=== PATIENT | male | born 1960 | race Caucasian/White ===

== ENCOUNTER 2017-11-12 09:18 | Emergency (ER) | payer OTHER ==
--- NOTE | 2017-11-12 10:25 | RAD REPORT ---
EXAM DESCRIPTION: RAD - Shoulder Left 2 View - 11/12/2017 10:19 am CLINICAL HISTORY: Left shoulder pain FINDINGS: No fracture or dislocation is seen. The the bones appear somewhat osteoporotic. The remai nder of the exam is unremarkable
--- NOTE | 2017-11-12 10:59 | EDPHYS ---
Physician Documentation [facility] Name: Luis Liz Age: 57 yrs Sex: Male : 1960 Arrival Date: 11/12/2017 Time: 09:22 Bed 14 Private MD: ED Physician Luis Joiner HPI: 11/12 10:47 This 57 yrs old Male presents to ER via Ambulatory with complaints of Left pm1 Shoulder Injury. 10:47 The patient or guardian complains of pain, that is acute. left shoulder. Context: The pm1 problem was sustained at work, The patient reports no obvious deformity. Decreased ROM due to pain. Onset: The symptoms/episode began/occurred yesterday. Modifying factors: the symptoms are alleviated by remaining still, The symptoms are aggravated by movement. Associated signs and symptoms: Pertinent negatives: chest pain, neck pain, Numbness in left arm shortness of breath. Severity of symptoms: in the emergency department the symptoms are unchanged. Treatment prior to arrival includes: over the counter medications, NSAIDS. The patient has not experienced similar symptoms in the past. The patient has not recently seen a physician. Patient was lifting a box over his head and then he lost control of it and it started falling to the left side. he supported the box with his left hand only and tried to lift it with flexion of his bicep. Left bicep pain as a result. Historical: - Allergies: 09:35 No Known Allergies; ss - Home Meds: 09:35 Lexapro 20 mg Oral tab 1 tab once daily [Active]; Klonopin 1 mg Oral tab 1 tab daily ss [Active]; - PMHx: 09:35 Anxiety; Depression; Migraines; ss - PSHx: 09:35 cervical fusion; ss - Immunization history:: Adult Immunizations up to date. - Social history:: Smoking status: Patient uses tobacco products, chewing tobacco. ROS: 10:47 Constitutional: Negative for fever, chills, and weight loss, Eyes: Negative for injury, pm1 pain, redness, and discharge, ENT: Negative for injury, pain, and discharge, Neck: Negative for injury, pain, and swelling, Cardiovascular: Negative for chest pain, palpitations, and edema, Respiratory: Negative for shortness of breath, cough, wheezing, and pleuritic chest pain, Abdomen/GI: Negative for abdominal pain, nausea, vomiting, diarrhea, and constipation, Back: Negative for injury and pain. 10:47 Skin: Negative for injury, rash, and discoloration, Neuro: Negative for headache, weakness, numbness, tingling, and seizure. 10:47 MS/extremity: Positive for pain, of the anterior aspect of left shoulder. Exam: 10:47 Constitutional: This is a well developed, well nourished patient who is awake, alert, pm1 and in no acute distress. Head/Face: Normocephalic, atraumatic. Neck: Trachea midline, no thyromegaly or masses palpated, and no cervical lymphadenopathy. Supple, full range of motion without nuchal rigidity, or vertebral point tenderness. No Meningismus. Chest/axilla: Normal chest wall appearance and motion. Nontender with no deformity. No lesions are appreciated. Cardiovascular: Regular rate and rhythm with a normal S1 and S2. No gallops, murmurs, or rubs. Normal PMI, no JVD. No pulse deficits. Respiratory: Lungs have equal breath sounds bilaterally, clear to auscultation and percussion. No rales, rhonchi or wheezes noted. No increased work of breathing, no retractions or nasal flaring. Back: No spinal tenderness. No costovertebral tenderness. Full range of motion. Skin: Warm, dry with normal turgor. Normal color with no rashes, no lesions, and no evidence of cellulitis. 10:47 Musculoskeletal/extremity: Extremities: grossly normal except: noted in the anterior aspect of left shoulder: tenderness, ROM: limited active range of motion due to pain, in the left shoulder, limited passive range of motion due to pain, in the left shoulder, Circulation is intact in all extremities. Sensation intact. 10:47 Neuro: Orientation: is normal, Motor: moves all fours, Sensation: is normal, no obvious gross deficits. Vital Signs: 09:35 BP 136 / 82; Pulse 74; Resp 16; Temp 98.2(TE); Pulse Ox 100% on R/A; Weight 88.45 kg; ss Height 5 ft. 11 in. (180.34 cm); Pain 0/10; 09:35 Body Mass Index 27.20 (88.45 kg, 180.34 cm) MDM: 09:54 Patient medically screened. pm1 10:53 Data reviewed: vital signs. Data interpreted: Pulse oximetry: on room air is 100 %. pm1 Interpretation: normal. Counseling: I had a detailed discussion with the patient and/or guardian regarding: the historical points, exam findings, and any diagnostic results supporting the discharge/admit diagnosis, radiology results, the need for outpatient follow up, for definitive care, a orthopedic surgeon, to return to the emergency department if symptoms worsen or persist or if there are any questions or concerns that arise at home. 11/12 09:55 Order name: Shoulder Left (2 View) XRAY; Complete Time: 10:46 pm1 11/12 09:58 Order name: Sling; Complete Time: 10:40 pm1 Administered Medications: No medications were administered Disposition: 11/12/17 10:58 Discharged to Home. Impression: Pain in left shoulder, Other injury of muscle(s) and tendon(s) of the rotator cuff of left shoulder. - Condition is Stable. - Discharge Instructions: Rotator Cuff Injury, Shoulder Pain, Arm Sling Use, [id number]. - Prescriptions for Tramadol 50 mg Oral Tablet - take 1 tablet by ORAL route every 8 hours as needed; 12 tablet. - Medication Reconciliation Form, Thank You Letter, Prescription Opioid Use form. - Follow up: Emergency Department; When: As needed; Reason: Worsening of condition. Follow up: Martin Winn MD; When: 2 - 3 days; Reason: Recheck today's complaints, Continuance of care, Re-evaluation by your physician. - Problem is new. - Symptoms have improved. Addendum: 11/14/2017 07:05 Co-signature as Attending Physician, Luis Joiner MD I agree with the assessment and w a plan of care. Signatures: Dispatcher [employer] EDOK Lacey Simon RN RN ss Eric Oliveira RN RN hj Henrique Callahan, AUTOMOTIVE PARTS CLERK AUTOMOTIVE PARTS CLERK pm1 Luis Joiner MD MD az
--- NOTE | 2017-11-12 10:59 | ER ---
Nurse's Notes 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 Transition of care: patient was not received from another setting of care. Onset of symptoms was November 11, 2017. Care prior to arrival: None. 09:33 Method Of Arrival: Ambulatory ss 09:33 Acuity: MACRINA 4 ss Triage Assessment: 09:38 General: Appears in no apparent distress. uncomfortable, Behavior is calm, cooperative, hj appropriate for age. Pain:. Musculoskeletal: Circulation, motion, and sensation intact. Capillary refill. 10:36 Injury Description:. hj Historical: - Allergies: 09:35 No Known Allergies; ss - Home Meds: 09:35 Lexapro 20 mg Oral tab 1 tab once daily [Active]; Klonopin 1 mg Oral tab 1 tab daily ss [Active]; - PMHx: 09:35 Anxiety; Depression; Migraines; ss - PSHx: 09:35 cervical fusion; ss - Immunization history:: Adult Immunizations up to date. - Social history:: Smoking status: Patient uses tobacco products, chewing tobacco. Screenin:38 Abuse screen: Denies threats or abuse. Denies injuries from another. Nutritional hj screening: No deficits noted. Tuberculosis screening: No symptoms or risk factors identified. Fall Risk None identified. Assessment: 10:00 General: Appears in no apparent distress. uncomfortable, Behavior is calm, cooperative, hj appropriate for age. Pain: Complains of pain in anterior aspect of left shoulder. Neuro: Level of Consciousness is awake, alert, obeys commands, Oriented to person, place, time, situation, Appropriate for age. Cardiovascular: Capillary refill < 3 seconds Patient's skin is warm and dry. Respiratory: Airway is patent Respiratory effort is even, unlabored, Respiratory pattern is regular, symmetrical. GI: No signs and/or symptoms were reported involving the gastrointestinal system. : No signs and/or symptoms were reported regarding the genitourinary system. EENT: No signs and/or symptoms were reported regarding the EENT system. Derm: No signs and/or symptoms reported regarding the dermatologic system. Musculoskeletal: Range of motion: limited in left shoulder Reports pain in anterior aspect of left shoulder. 10:36 Reassessment: Patient and/or family updated on plan of care and expected duration. Pain hj level reassessed. Patient is alert, oriented x 3, equal unlabored respirations, skin warm/dry/pink. awaiting results;. Vital Signs: 09:35 BP 136 / 82; Pulse 74; Resp 16; Temp 98.2(TE); Pulse Ox 100% on R/A; Weight 88.45 kg; ss Height 5 ft. 11 in. (180.34 cm); Pain 0/10; 09:35 Body Mass Index 27.20 (88.45 kg, 180.34 cm) ED Course: 09:22 Patient arrived in ED. sb2 09:34 Triage completed. ss 09:35 Arm band placed on right wrist. ss 09:37 Eric Oliveira, RN is Primary Nurse. hj 09:39 Patient has correct armband on for positive identification. Bed in low position. Call hj light in reach. Side rails up X 1. 09:44 Henrique Callahan NP is PHCP. pm1 09:44 Luis Joiner MD is Attending Physician. pm1 10:19 Shoulder Left (2 View) XRAY In Process Unspecified. EDMS 10:57 Martin Winn MD is Referral Physician. pm1 11:17 No provider procedures requiring assistance completed. Patient did not have IV access hj during this emergency room visit. Administered Medications: No medications were administered Outcome: 10:58 Discharge ordered by . pm1 11:18 Discharged to home ambulatory. hj 11:18 Condition: stable 11:18 Discharge instructions given to patient, Instructed on discharge instructions, follow up and referral plans. medication usage, Demonstrated understanding of instructions, follow-up care, medications, Prescriptions given X 1. 11:18 Patient left the ED. hj Signatures: Dispatcher [employer] EDHI Lacey Simon RN RN Eric Oliveira RN RN hj Henrique Callahan, NETWORK SOLUTIONS ARCHITECT NETWORK SOLUTIONS ARCHITECT pm1 Alexus Edgar sb2
== END 2017-11-12 11:18 | disposition home or self-care (01) ==
LOC: ER 09:18
DX: S46.092A Other injury of muscle(s) and tendon(s) of the rotator cuff of left shoulder, initial encounter (principal); X50.9XXA Other and unspecified overexertion or strenuous movements or postures, initial encounter; Y93.89 Activity, other specified; Y92.89 Other specified places as the place of occurrence of the external cause; F32.9 Major depressive disorder, single episode, unspecified; F41.9 Anxiety disorder, unspecified; Z72.0 Tobacco use
CPT/HCPCS: 99283

== ENCOUNTER 2018-10-12 09:11 | Day surgery (SDC) | payer BC ==
--- OUTSIDE RECORDS SUMMARY | 2018-10-12 09:14 | XMS REPORT ---
:1960 Author Organization eClinicalWorks Care Team Providers Name Role Phone Israel Roca Provider Role Unavailable Allergies No Known Allergies Problems Problem Type Condition Code Onset Dates Condition Status Assessment Depression with anxiety F41.8 Active Problem Spinal stenosis of lumbar region, M48.061 Active unspecified whether neurogenic claudication present Problem Chewing tobacco nicotine dependence F17.229 Active with nicotine-induced disorder Problem Depression with anxiety F41.8 Active Problem Other chronic pain G89.29 Active Problem HTN (hypertension), benign I10 Active Problem Migraine without aura and without G43.009 Active status migrainosus, not intractable Problem Bilateral carpal tunnel syndrome G56.03 Active Problem Sleep apnea, obstructive G47.33 Active Problem Dorsalgia, unspecified M54.9 Active Assessment Spinal stenosis of lumbar region, M48.061 Active unspecified whether neurogenic claudication present Assessment Other chronic pain G89.29 Active Assessment Sleep apnea, obstructive G47.33 Active Assessment Chewing tobacco nicotine dependence F17.229 Active with nicotine-induced disorder Assessment Dorsalgia, unspecified M54.9 Active Assessment Migraine without aura and without G43.009 Active status migrainosus, not intractable Assessment Bilateral carpal tunnel syndrome G56.03 Active Assessment HTN (hypertension), benign I10 Active Medications Medication Code Code Instructions Start End Status Dosage System Date Date Klonopin [facility] 88385506938 1 MG Orally Once Active 1 tablet a day Lexapro ND 20553926795 20 MG Orally Active 1 tablet Once a day Maxalt ND 58507375018 10 MG Orally Active 1 tablet Once a day as needed one time Advil ND 09730709444 200 MG Orally Active 1 capsule Three times a with food day or milk as needed Duexis [facility] 86223595945 800-26.6 MG November 17February Active 1 tablet Orally Three 2018 15, times a day PRN 2018 Pain/Swelling Super B NDC 0 Active not Complex defined Results No Known Results Summary Purpose eClinicalWorks Submission
--- OUTSIDE RECORDS SUMMARY | 2018-10-12 09:14 | XMS REPORT ---
:1960 Author Organization eClinicalWorks Care Team Providers Name Role Phone Edita Frantz Provider Role Unavailable Allergies No Known Allergies Problems Problem Type Condition Code Onset Dates Condition Status Problem Spinal stenosis of lumbar region, M48.061 Active unspecified whether neurogenic claudication present Problem Migraine without aura and without G43.009 Active status migrainosus, not intractable Problem Bilateral carpal tunnel syndrome G56.03 Active Problem Chewing tobacco nicotine dependence F17.229 Active with nicotine-induced disorder Problem Restless leg syndrome G25.81 Active Problem HTN (hypertension), benign I10 Active Problem Calculus of gallbladder without K80.20 Active cholecystitis without obstruction Problem Sleep apnea, obstructive G47.33 Active Problem Dorsalgia, unspecified M54.9 Active Problem Depression with anxiety F41.8 Active Problem Other chronic pain G89.29 Active Medications No Known Medications Results No Known Results Summary Purpose eClinicalWorks Submission
--- OUTSIDE RECORDS SUMMARY | 2018-10-12 09:14 | XMS REPORT ---
:1960 Author Organization eClinicalWorks Care Team Providers Name Role Phone Yohannes Rocah Provider Role Unavailable Allergies, Adverse Reactions, Alerts Substance Reaction Event Type N.K.D.A. Info Not Available Non Drug Allergy Problems Problem Type Condition Code Onset Dates Condition Status Problem Chewing tobacco nicotine F17.229 Active dependence with nicotine-induced disorder Problem Bilateral carpal tunnel syndrome G56.03 Active Problem Spinal stenosis of lumbar region, M48.061 Active unspecified whether neurogenic claudication present Problem HTN (hypertension), benign I10 Active Assessment Dorsalgia, unspecified M54.9 Active Problem Depression with anxiety F41.8 Active Assessment Injury of left rotator cuff, S46.002D Active subsequent encounter Problem Restless leg syndrome G25.81 Active Problem Dorsalgia, unspecified M54.9 Active Problem Migraine without aura and without G43.009 Active status migrainosus, not intractable Problem Other chronic pain G89.29 Active Problem Sleep apnea, obstructive G47.33 Active Assessment Chewing tobacco nicotine F17.229 Active dependence with nicotine-induced disorder Assessment Sleep apnea, obstructive G47.33 Active Assessment Restless leg syndrome G25.81 Active Assessment Migraine without aura and without G43.009 Active status migrainosus, not intractable Assessment Encounter for screening for other Z11.59 Active viral diseases Assessment Screening for colon cancer Z12.11 Active Assessment HTN (hypertension), benign I10 Active Assessment Encounter for preventative adult Z00.01 Active health care exam with abnormal findings Assessment Depression with anxiety F41.8 Active Medications Medication Code Code Instructions Start End Status Dosage System Date Date Super B NDC 0 Active not Complex defined Klonopin ND 33632998233 1 MG Orally Once Active 1 tablet a day Advil ND 05196321102 200 MG Orally Active 1 capsule Three times a with food day or milk as needed Duexis [facility] 25667502030 800-26.6 MG November 17February Active 1 tablet Orally Three 2018 15, times a day PRN 2018 Pain/Swelling Maxalt [facility] 33604230648 10 MG Orally Active 1 tablet Once a day as needed one time Lexapro [facility] 86237747940 20 MG Orally Active 1 tablet Once a day Results No Known Results Summary Purpose eClinicalWorks Submission
--- OUTSIDE RECORDS SUMMARY | 2018-10-12 09:14 | XMS REPORT ---
:1960 Author Organization eClinicalWorks Care Team Providers Name Role Phone Yohannes Rocah Provider Role Unavailable Allergies, Adverse Reactions, Alerts Substance Reaction Event Type N.K.D.A. Info Not Available Non Drug Allergy Problems Problem Type Condition Code Onset Dates Condition Status Problem Chewing tobacco nicotine dependence F17.229 Active with nicotine-induced disorder Problem Bilateral carpal tunnel syndrome G56.03 Active Problem Spinal stenosis of lumbar region, M48.061 Active unspecified whether neurogenic claudication present Problem HTN (hypertension), benign I10 Active Problem Depression with anxiety F41.8 Active Problem Restless leg syndrome G25.81 Active Problem Dorsalgia, unspecified M54.9 Active Problem Migraine without aura and without G43.009 Active status migrainosus, not intractable Problem Other chronic pain G89.29 Active Problem Sleep apnea, obstructive G47.33 Active Assessment Dorsalgia, unspecified M54.9 Active Assessment Migraine without aura and without G43.009 Active status migrainosus, not intractable Assessment History of fracture of vertebra Z87.81 Active Assessment HTN (hypertension), benign I10 Active Assessment Restless leg syndrome G25.81 Active Assessment Chewing tobacco nicotine dependence F17.229 Active with nicotine-induced disorder Assessment Depression with anxiety F41.8 Active Assessment Sleep apnea, obstructive G47.33 Active Medications Medication Code Code Instructions Start End Status Dosage System Date Date Super B NDC 0 Active not Complex defined Advil ND 30060811306 200 MG Orally Aug 19, Inactive 1 capsule Three times a 2018 with food day or milk as needed Lexapro ND 57941407301 20 MG Orally Active 1 tablet Once a day Klonopin ND 84389221250 1 MG Orally Active 1 tablet Once a day at bedtime Duexis [facility] 37449366557 800-26.6 MG Aug 19, Sep 18, Active 1 tablet Orally 2018 2019 times a day PRN Pain Maxalt ND 91388327522 10 MG Orally Active 1 tablet Once a day as as needed needed for one time severe CRUZ Results No Known Results Summary Purpose eClinicalWorks Submission
--- OUTSIDE RECORDS SUMMARY | 2018-10-12 09:14 | XMS REPORT ---
[...] G43.009 Active status migrainosus, not intractable Assessment HTN (hypertension), benign I10 Active Assessment Restless leg syndrome G25.81 Active Assessment Chewing tobacco nicotine dependence F17.229 Active with nicotine-induced disorder Assessment Depression with anxiety F41.8 Active Assessment Sleep apnea, obstructive G47.33 Active Medications Medication Code Code Instructions Start End Status Dosage System Date Date Super B NDC 0 Active not Complex defined Maxalt ND 56754421219 10 MG Orally Active 1 tablet Once a day as as needed needed for one time severe CRUZ Klonopin NDC 75300747946 1 MG Orally Once Active 1 tablet a day at bedtime Lexapro ND 26915096500 20 MG Orally Active 1 tablet Once a day Advil ND 00951185508 200 MG Orally Active 1 capsule Three times a with food day or milk as needed Results No Known Results Summary Purpose eClinicalWorks Submission
--- OUTSIDE RECORDS SUMMARY | 2018-10-12 09:14 | XMS REPORT ---
:1960 Author Organization eClinicalWorks Care Team Providers Name Role Phone KamilladeirdreFrantz Provider Role Unavailable Allergies No Known Allergies [...] Active Problem Sleep apnea, obstructive G47.33 Active Medications No Known Medications Results No Known Results Summary Purpose eClinicalWorks Submission
--- OUTSIDE RECORDS SUMMARY | 2018-10-12 09:14 | XMS REPORT ---
[...] Problem Bilateral carpal tunnel syndrome G56.03 Active Assessment Abdominal pain, RUQ R10.11 Active Assessment Calculus of gallbladder without K80.20 Active cholecystitis without obstruction Problem Chewing tobacco nicotine dependence F17.229 Active with nicotine-induced disorder Problem Restless leg syndrome G25.81 Active Problem HTN (hypertension), benign I10 Active Problem Calculus of gallbladder without K80.20 Active cholecystitis without obstruction Problem Sleep apnea, obstructive G47.33 Active Problem Dorsalgia, unspecified M54.9 Active Problem Depression with anxiety F41.8 Active Problem Other chronic pain G89.29 Active Medications Medication Code Code Instructions Start End Status Dosage System Date Date Maxalt [facility] 11516119199 10 MG Orally Active 1 tablet Once a day as as needed needed for one time severe CRUZ Calcium 600+D [facility] [address] 600-800 MG-UNIT Active 1 tablet Orally Twice a with a day meal Lexapro [facility] 39706894174 20 MG Orally Active 1 tablet Once a day Super B NDC 0 Active not Complex defined Klonopin [facility] 25664455906 1 MG Orally Once Active 1 tablet a day at bedtime Results No Known Results Summary Purpose eClinicalWorks Submission
--- OUTSIDE RECORDS SUMMARY | 2018-10-12 09:14 | XMS REPORT ---
[...] Problem Sleep apnea, obstructive G47.33 Active Medications Medication Code Code Instructions Start End Status Dosage System Date Date Lexapro [facility] 38567708610 20 MG Orally Active 1 tablet Once a day Super B NDC 0 Active not Complex defined Duexis [facility] 23714056034 800-26.6 MG Aug 19, Sep 18, Active 1 tablet Orally Three 2018 2019 times a day PRN Pain Maxalt [facility] 80841723077 10 MG Orally Active 1 tablet Once a day as as needed needed for one time severe CRUZ Klonopin [facility] 33206181483 1 MG Orally Once Active 1 tablet a day at bedtime Calcium 600+D [facility] [address] 600-800 MG-UNIT Active 1 tablet Orally Twice a with a day meal Results No Known Results Summary Purpose eClinicalWorks Submission
--- OUTSIDE RECORDS SUMMARY | 2018-10-12 09:14 | XMS REPORT ---
:1960 Author Organization eClinicalWorks Care Team Providers Name Role Phone KamilladeirdreFrantz Provider Role Unavailable Allergies, Adverse Reactions, Alerts Substance Reaction Event Type N.K.D.A. Info Not Available Non Drug Allergy Problems Problem Type Condition Code Onset Dates Condition Status Problem Chewing tobacco nicotine dependence F17.229 Active with nicotine-induced disorder Problem Bilateral carpal tunnel syndrome G56.03 Active Problem Spinal stenosis of lumbar region, M48.061 Active unspecified whether neurogenic claudication present Assessment Encounter for screening colonoscopy Z12.11 Active Problem HTN (hypertension), benign I10 Active Problem Depression with anxiety F41.8 Active Problem Restless leg syndrome G25.81 Active Problem Dorsalgia, unspecified M54.9 Active Problem Migraine without aura and without G43.009 Active status migrainosus, not intractable Problem Other chronic pain G89.29 Active Problem Sleep apnea, obstructive G47.33 Active Medications Medication Code Code Instructions Start End Status Dosage System Date Date Advil [facility] 10038055810 200 MG Orally Active 1 capsule Three times a with food day or milk as needed Klonopin ND 65775301272 1 MG Orally Once Active 1 tablet a day Super B NDC 0 Active not Complex defined Duexis [facility] 09289311909 800-26.6 MG November 17February Active 1 tablet Orally Three 2018 15, times a day PRN 2018 Pain/Swelling Maxalt ND 16148291575 10 MG Orally Active 1 tablet Once a day as needed one time Lexapro ND 07871788584 20 MG Orally Active 1 tablet Once a day Results No Known Results Summary Purpose eClinicalWorks Submission
[2018-10-12] MEDS ORDERED: Ringers Lactate 1,000 ML IV ONE ×2 (09:40→13:25)
[2018-10-12] MEDS ORDERED: CEFOXITIN/SWI 2gm 2 GM/20 ML SYR IV ONE (10:15)
[2018-10-12] MEDS ORDERED: BUPIVACAINE 0.25% PF 10 ML VIAL ONE (11:56)
[2018-10-12] MEDS ORDERED: LIDOCAINE 2% MPF 5 ML VIAL ONE (12:00)
[2018-10-12] MEDS ORDERED: ONDANSETRON 4 MG/2 ML VIAL ONE ×2 (12:00→14:59)
[2018-10-12] MEDS ORDERED: PROPOFOL 200 MG/20 ML VIAL IV ONE (12:00)
[2018-10-12] MEDS ORDERED: FENTANYL CITR 250 MCG/5 ML ONE (12:00)
[2018-10-12] MEDS ORDERED: ROCURONIUM 50 MG/5 ML VIAL IV ONE (12:00)
[2018-10-12] MEDS ORDERED: MIDAZOLAM HCL 2 MG/2 ML INJ ONE (12:00)
[2018-10-12] MEDS ORDERED: DEXAMETHASONE 4 MG/ML VIAL ONE (13:07)
[2018-10-12] MEDS ORDERED: GLYCOPYRROLATE 0.2 MG/ML SYR ONE ×2 (13:31→13:32)
[2018-10-12] MEDS ORDERED: NEOSTIGMINE 1 MG/ML -10 ML VIAL ONE (13:32)
--- NOTE | 2018-10-12 13:39 | P.OP ---
Preoperative diagnosis: Acute Cholecystitis with Cholelithiasis Postoperative diagnosis: Acute Cholecystitis with Cholelithiasis Primary procedure: Laparoscopic Cholecystectomy Anesthesia: GETA + Local Estimated blood loss: <10cc Specimen: Gallbladder Findings: Thickened Inflammed Gallbladder Complications: None Transferred to: Recovery Room Condition: Good
[2018-10-12] MEDS: MORPHINE 4 MG/ML SYR ONE ×2 (14:05→14:12)
[2018-10-12] MEDS ORDERED: HYDROCODONE/APAP 5/325 MG TAB ONE (14:56)
--- NOTE | 2018-10-13 02:20 | OP ---
Date of Procedure: 10/12/2018 Surgeon: Frantz Kohler MD, Preoperative Diagnosis: Acute calculous cholecystitis. Postoperative Diagnosis: Acute calculous cholecystitis. Procedure Performed: Laparoscopic cholecystectomy. Anesthesia: General endotracheal plus local, 0.5% Marcaine with epinephrine. Estimated Blood Loss: Less than 10 cc. Specimen: Gallbladder. Findings: Thickened, inflamed gallbladder. Complications: None. Disposition: Transferred to recovery room in good condition. Procedure In Detail: After informed consent was obtained, the patient was brought to the operating r oom, prepped and draped in the usual sterile fashion. After adequate anesthesia was achieved, suprau mbilical area was anesthetized with 0.25% Marcaine, sharply incised. A 5 mm 0-degree optical trocar was introduced in the abdomen without evidence of complication. Insufflation was obtained to 15 mmHg . At this time, there was no injury to vital structures upon entry into the abdomen. Additional tro car site was chosen in the right upper quadrant in the epigastrium. This was similarly anesthetized and sharply incised and the epigastric port was then placed under direct visualization without eviden ce of complication. The umbilical trocar was then up-sized to a 12 mm under direct visualization wit hout evidence of complication. The attention was then turned to the right upper quadrant and this ar ea of the right upper quadrant was similarly anesthetized, sharply incised. A 5-mm trocar was introd uced in the abdomen without evidence of complication. The patient was then positioned head up, right -side up position. The gallbladder was grasped and elevated toward the patient's right shoulder. It was found to be quite thick walled with significant stone burden throughout the entire gallbladder. Dissection was continued down to the confluence of the cystic duct and cystic artery to the gallblad niraj and the area was cleansed and skeletonized around their identifying 2 structures entering the gal lbladder. These 2 structures were both identified as cystic duct and cystic artery. This area was d oubly clipped on the proximal side and singly on the distal side and the 2 structures were then ligat ed using the Endo Arleth after the critical view of safety was obtained. At this point, the gallblad niraj was removed from the hepatic fossa and placed in EndoCatch bag, removed the umbilical trocar and sent off for pathologic examination. Reinspection of the hepatic fossa required hemostatic maneuvers of increasing fulguration throughout the bed of the gallbladder with oozy-type bleeding. Clips were found to be in good anatomic position. The abdomen was copiously irrigated. There was minimal spil elin of stone and bile throughout the procedure. The area was copiously irrigated until completely c lear and all bleeding was stopped using the electrocautery and the hepatic fossa. The area was copio usly irrigated once again and suctioned to completely dry and inspected. Proper hemostasis was achie idalia at this time. The patient was then positioned in neutral position. The umbilical trocar was rem rasheed. The umbilical trocar site was closed using Donovan-Jeremiah suture passer with 0 Vicryl in inte rrupted fashion with good approximation of the tissues. The abdomen was then completely desufflated under direct visualization without evidence of complication. Remaining trocars were removed. The ab domen was completely desufflated and all skin incisions were copiously irrigated and closed with a 4- 0 Monocryl in a running fashion. Dermabond was placed over top. The patient tolerated the procedure well without evidence of complications, transferred to the PACU in good condition. All counts were correct at the end of the case. LAWSON/PAT Voice ID: [id number] Report ID: [id number]
== END 2018-10-12 15:51 | disposition home or self-care (01) ==
LOC: OR 09:11
PROVIDERS: ATTEND Surgery
PROC: 0FT44ZZ Resection of Gallbladder, Percutaneous Endoscopic Approach (ICD-10-PCS; principal; 2018-10-12 11:00)
DX: K80.12 Calculus of gallbladder with acute and chronic cholecystitis without obstruction (principal); G47.33 Obstructive sleep apnea (adult) (pediatric); I10 Essential (primary) hypertension; F41.8 Other specified anxiety disorders; Z72.0 Tobacco use; Z80.41 Family history of malignant neoplasm of ovary; Z80.42 Family history of malignant neoplasm of prostate; Z82.49 Family history of ischemic heart disease and other diseases of the circulatory system
CPT/HCPCS: 88304; J0694; J2250; J2405; J2704; J2710; J3010

== ENCOUNTER 2018-10-13 18:50 | Emergency (ER) | payer BC ==
--- OUTSIDE RECORDS SUMMARY | 2018-10-13 18:52 | XMS REPORT ---
[...] End Status Dosage System Date Date Lexapro [facility] 41721378261 20 MG Orally Active 1 tablet Once a day Super B NDC 0 Active not Complex defined Duexis [facility] 40778216901 800-26.6 MG Aug 19, Sep 18, Active 1 tablet Orally Three 2018 2019 times a day PRN Pain Maxalt [facility] 15086444379 10 MG Orally Active 1 tablet Once a day as as needed needed for one time severe CRUZ Klonopin [facility] 15869578282 1 MG Orally Once Active 1 tablet a day at bedtime Calcium 600+D [facility] 42045-26222 600-800 MG-UNIT Active 1 tablet Orally Twice a with a day meal Results No Known Results Summary Purpose eClinicalWorks Submission
--- OUTSIDE RECORDS SUMMARY | 2018-10-13 18:52 | XMS REPORT ---
[...] End Status Dosage System Date Date Maxalt [facility] 35236280386 10 MG Orally Active 1 tablet Once a day as as needed needed for one time severe CRUZ Calcium 600+D [facility] 17437-59304 600-800 MG-UNIT Active 1 tablet Orally Twice a with a day meal Lexapro [facility] 57336620371 20 MG Orally Active 1 tablet Once a day Super B NDC 0 Active not Complex defined Klonopin [facility] 06962189439 1 MG Orally Once Active 1 tablet a day at bedtime Results No Known Results Summary Purpose eClinicalWorks Submission
--- OUTSIDE RECORDS SUMMARY | 2018-10-13 18:52 | XMS REPORT ---
[...] End Status Dosage System Date Date Advil [facility] 31448321227 200 MG Orally Active 1 capsule Three times a with food day or milk as needed Klonopin ND 73230657296 1 MG Orally Once Active 1 tablet a day Super B NDC 0 Active not Complex defined Duexis [facility] 20229238427 800-26.6 MG November 17February Active 1 tablet Orally Three 2018 15, times a day PRN 2018 Pain/Swelling Maxalt ND 65040173952 10 MG Orally Active 1 tablet Once a day as needed one time Lexapro ND 34239535655 20 MG Orally Active 1 tablet Once a day Results No Known Results Summary Purpose eClinicalWorks Submission
--- OUTSIDE RECORDS SUMMARY | 2018-10-13 18:52 | XMS REPORT ---
[...] 0 Active not Complex defined Klonopin ND 38734991620 1 MG Orally Once Active 1 tablet a day Advil ND 61835016472 200 MG Orally Active 1 capsule Three times a with food day or milk as needed Duexis [facility] 44595312982 800-26.6 MG November 17February Active 1 tablet Orally Three 2018 15, times a day PRN 2018 Pain/Swelling Maxalt [facility] 23207728641 10 MG Orally Active 1 tablet Once a day as needed one time Lexapro [facility] 59248771059 20 MG Orally Active 1 tablet Once a day Results No Known Results Summary Purpose eClinicalWorks Submission
--- OUTSIDE RECORDS SUMMARY | 2018-10-13 18:52 | XMS REPORT ---
[...] End Status Dosage System Date Date Klonopin [facility] 97505583012 1 MG Orally Once Active 1 tablet a day Lexapro ND 68055295289 20 MG Orally Active 1 tablet Once a day Maxalt ND 47093850582 10 MG Orally Active 1 tablet Once a day as needed one time Advil ND 98200548010 200 MG Orally Active 1 capsule Three times a with food day or milk as needed Duexis [facility] 68239464117 800-26.6 MG November 17February Active 1 tablet Orally Three 2018 15, times a day PRN 2018 Pain/Swelling Super B NDC 0 Active not Complex defined Results No Known Results Summary Purpose eClinicalWorks Submission
--- OUTSIDE RECORDS SUMMARY | 2018-10-13 18:52 | XMS REPORT ---
[...] 0 Active not Complex defined Advil ND 86728114501 200 MG Orally Aug 19, Inactive 1 capsule Three times a 2018 with food day or milk as needed Lexapro ND 45408276701 20 MG Orally Active 1 tablet Once a day Klonopin ND 51152364106 1 MG Orally Active 1 tablet Once a day at bedtime Duexis [facility] 96848304129 800-26.6 MG Aug 19, Sep 18, Active 1 tablet Orally 2018 2019 times a day PRN Pain Maxalt ND 82578610023 10 MG Orally Active 1 tablet Once a day as as needed needed for one time severe CRUZ Results No Known Results Summary Purpose eClinicalWorks Submission
--- OUTSIDE RECORDS SUMMARY | 2018-10-13 18:52 | XMS REPORT ---
[...] 0 Active not Complex defined Maxalt ND 44465757918 10 MG Orally Active 1 tablet Once a day as as needed needed for one time severe CRUZ Klonopin NDC 65752507510 1 MG Orally Once Active 1 tablet a day at bedtime Lexapro ND 55714541766 20 MG Orally Active 1 tablet Once a day Advil ND 84249310621 200 MG Orally Active 1 capsule Three times a with food day or milk as needed Results No Known Results Summary Purpose eClinicalWorks Submission
[2018-10-13] MEDS ORDERED: NA CHLORIDE 0.9% 1,000 ML ONE (19:46)
[2018-10-13 20:04] LABS: Absolute Lymphocytes (CBC) 1.1 K/uL (0.7-4.9); Absolute Monocytes 0.6 K/uL (0.1-1.3); Absolute Neutrophil 6.6 K/uL (1.8-8.0); Basophils % 0.2 % (0-1.3); Eosinophils % 0.9 % (0-4.4); Hematocrit 36.4 % (39.6-49.0); Lymphocytes % 12.7 % (15.3-44.8); MPV 8.5 fL (7.6-11.3); Monocytes % 7.4 % (3.3-12.3); RBC Red Blood Cell Count 3.94 M/uL (4.33-5.43)
[2018-10-13 20:10] LABS: Potassium 4.3 mmol/L (3.5-5.1)
[2018-10-13] MEDS ORDERED: HYDROCODONE/APAP 5/325 MG TAB ONE (20:29)
--- NOTE | 2018-10-13 21:11 | ER ---
Nurse's Notes [facility] Name: Luis Liz Age: 58 yrs Sex: Male : 1960 Arrival Date: 10/13/2018 Time: 18:53 Bed 26 Private MD: Israel Roca Diagnosis: Other acute postprocedural pain Presentation: 10/13 18:57 Presenting complaint: Severe right sided abdominal pain and chills today. Pt had hb cholecystectomy yesterday with Dr. Kohler. Transition of care: patient was not received from another setting of care. Onset of symptoms was October 13, 2018. Risk Assessment: Do you want to hurt yourself or someone else? Patient reports no desire to harm self or others. Care prior to arrival: None. 18:57 Method Of Arrival: Ambulatory 18:57 Acuity: MACRINA 3 hb 19:57 Initial Sepsis Screen: Does the patient meet any 2 criteria? No. Patient's initial mg2 sepsis screen is negative. Does the patient have a suspected source of infection? No. Patient's initial sepsis screen is negative. Historical: - Allergies: 18:59 No Known Allergies; hb - Home Meds: 18:59 Klonopin 1 mg Oral tab 1 tab daily [Active]; Lexapro 20 mg Oral tab 1 tab once daily hb [Active]; - PMHx: 18:59 Depression; Migraines; Anxiety; hb - PSHx: 18:59 cervical fusion; Cholecystectomy; hb - Immunization history:: Adult Immunizations up to date. - Social history:: Smoking status: Patient/guardian denies using tobacco. - Ebola Screening: : No symptoms or risks identified at this time. Screenin:57 Abuse screen: Denies threats or abuse. Denies injuries from another. Nutritional mg2 screening: No deficits noted. Tuberculosis screening: No symptoms or risk factors identified. Fall Risk IV access (20 points). Assessment: 19:54 General: Appears in no apparent distress. comfortable, Behavior is calm, cooperative. mg2 Pain: Complains of pain in abdomen Pain does not radiate. Pain currently is 2 out of 10 on a pain scale. Quality of pain is described as aching, Pain began gradually, Is intermittent. Neuro: Level of Consciousness is awake, alert, obeys commands, Oriented to person, place, time, situation. Cardiovascular: Capillary refill < 3 seconds Patient's skin is warm and dry. Respiratory: Airway is patent Respiratory effort is even, unlabored, Respiratory pattern is regular, symmetrical. GI: Bowel sounds present X 4 quads. Abd is soft and non tender. : No signs and/or symptoms were reported regarding the genitourinary system. EENT: No signs and/or symptoms were reported regarding the EENT system. Derm: Skin is intact, is healthy with good turgor, Skin is pink, warm \T\ dry. normal. Musculoskeletal: Circulation, motion, and sensation intact. Capillary refill < 3 seconds. 20:26 Reassessment: dr Kohler and asked about the patient's vs. mg2 Vital Signs: 18:56 BP 120 / 65; Pulse 79; Resp 16; Temp 99(TE); Pulse Ox 98% on R/A; Pain 10/10; hb 19:57 BP 106 / 59; Pulse 80; Resp 18; Pulse Ox 99% on R/A; Pain 2/10; mg2 20:26 BP 118 / 62; Pulse 67; Resp 18; Pulse Ox 98% on R/A; Pain 4/10; mg2 ED Course: 18:53 Patient arrived in ED. as 18:53 Israel Roca DO is Private Physician. as 18:58 Triage completed. hb 18:59 Arm band placed on left wrist. hb 19:07 Beckie Langston, RN is Primary Nurse. ls4 19:13 Joseluis Gaffney MD is Attending Physician. gs 19:45 No provider procedures requiring assistance completed. Inserted saline lock: 20 gauge mg2 in right antecubital area, using aseptic technique. Blood collected. 19:57 Patient has correct armband on for positive identification. mg2 21:03 Frantz Kohler MD is Referral Physician. gs 21:23 IV discontinued, intact, bleeding controlled, No redness/swelling at site. Pressure mg2 dressing applied. Administered Medications: 19:45 Drug: NS 0.9% 1000 ml Route: IV; Rate: 175 ml/hr; Site: right antecubital; mg2 21:13 Follow up: IV Status: Order to discontinue infusion mg2 20:21 Drug: [place] 5 mg-325 mg 1 tabs Route: PO; mg2 21:13 Follow up: Response: No adverse reaction; Marked relief of symptoms mg2 Outcome: 21:11 Discharge ordered by . gs 21:23 Discharged to home ambulatory, with family. mg2 21:23 Condition: stable 21:23 Discharge instructions given to patient, family, Instructed on discharge instructions, follow up and referral plans. Demonstrated understanding of instructions, follow-up care. 21:24 Patient left the ED. mg2 Signatures: Mila Herrera Heather, RN RN Joseluis Sam MD MD gs [place], Michele, RN RN mg2 Beckie Langston RN RN ls4
--- NOTE | 2018-10-13 21:11 | EDPHYS ---
Physician Documentation [facility] Name: Luis Liz Age: 58 yrs Sex: Male : 1960 Arrival Date: 10/13/2018 Time: 18:53 Bed 26 Private MD: Abelino [facility] ED Physician Joseluis Gaffney HPI: 10/13 20:58 This 58 yrs old Male presents to ER via Ambulatory with complaints of gs Abdominal Pain. 20:58 The patient presents with abdominal pain in the right upper quadrant. Onset: The gs symptoms/episode began/occurred today. Associated signs and symptoms: Pertinent negatives: chest pain, fever, vomiting. The symptoms are described as crampy, intermittent. Severity of pain: At its worst the pain was moderate in the emergency department the pain has improved mildly. POD #1 lap prem some increases pain this evening. Historical: - Allergies: 18:59 No Known Allergies; hb - Home Meds: 18:59 Klonopin 1 mg Oral tab 1 tab daily [Active]; Lexapro 20 mg Oral tab 1 tab once daily hb [Active]; - PMHx: 18:59 Depression; Migraines; Anxiety; hb - PSHx: 18:59 cervical fusion; Cholecystectomy; hb - Immunization history:: Adult Immunizations up to date. - Social history:: Smoking status: Patient/guardian denies using tobacco. - Ebola Screening: : No symptoms or risks identified at this time. ROS: 20:58 All other systems are negative. gs Exam: 20:58 Head/Face: Normocephalic, atraumatic. Eyes: Pupils equal round and reactive to light, gs extra-ocular motions intact. Lids and lashes normal. Conjunctiva and sclera are non-icteric and not injected. Cornea within normal limits. Periorbital areas with no swelling, redness, or edema. ENT: Nares patent. No nasal discharge, no septal abnormalities noted. Tympanic membranes are normal and external auditory canals are clear. Oropharynx with no redness, swelling, or masses, exudates, or evidence of obstruction, uvula midline. Mucous membranes moist. Neck: Trachea midline, no thyromegaly or masses palpated, and no cervical lymphadenopathy. Supple, full range of motion without nuchal rigidity, or vertebral point tenderness. No Meningismus. Chest/axilla: Normal chest wall appearance and motion. Nontender with no deformity. No lesions are appreciated. Cardiovascular: Regular rate and rhythm with a normal S1 and S2. No gallops, murmurs, or rubs. Normal PMI, no JVD. No pulse deficits. Respiratory: Lungs have equal breath sounds bilaterally, clear to auscultation and percussion. No rales, rhonchi or wheezes noted. No increased work of breathing, no retractions or nasal flaring. Back: No spinal tenderness. No costovertebral tenderness. Full range of motion. Skin: Warm, dry with normal turgor. Normal color with no rashes, no lesions, and no evidence of cellulitis. MS/ Extremity: Pulses equal, no cyanosis. Neurovascular intact. Full, normal range of motion. Neuro: Awake and alert, GCS 15, oriented to person, place, time, and situation. Cranial nerves II-XII grossly intact. Motor strength 5/5 in all extremities. Sensory grossly intact. Cerebellar exam normal. Normal gait. 20:58 Constitutional: The patient appears alert, awake. 20:58 Abdomen/GI: Palpation: mild abdominal tenderness, in the right upper quadrant, rebound tenderness, is not appreciated. Vital Signs: 18:56 BP 120 / 65; Pulse 79; Resp 16; Temp 99(TE); Pulse Ox 98% on R/A; Pain 10/10; hb 19:57 BP 106 / 59; Pulse 80; Resp 18; Pulse Ox 99% on R/A; Pain 2/10; mg2 20:26 BP 118 / 62; Pulse 67; Resp 18; Pulse Ox 98% on R/A; Pain 4/10; mg2 Procedures: 20:58 Ultrasound: Type: Fast exam, performed by the emergency department physician, negative gs for fluid. MDM: 19:29 Patient medically screened. gs 20:58 Differential diagnosis: post op pain post op bleeding. Data reviewed: vital signs, gs nurses notes, lab test result(s). Counseling: I had a detailed discussion with the patient and/or guardian regarding: the historical points, exam findings, and any diagnostic results supporting the discharge/admit diagnosis, the need for outpatient follow up. Response to treatment: the patient's symptoms have markedly improved after treatment, and as a result, I will discharge patient. Physician consultation: Frantz Kohler MD regarding patient's condition, and will see patient in office, tomorrow. 03/12 19:31 Order name: CBC with Diff 10/13 19:31 Order name: Basic Metabolic Panel; Complete Time: 20:12 10/13 19:31 Order name: CBC with Automated Diff; Complete Time: 20:49 EDMS Administered Medications: 19:45 Drug: NS 0.9% 1000 ml Route: IV; Rate: 175 ml/hr; Site: right antecubital; mg2 21:13 Follow up: IV Status: Order to discontinue infusion mg2 20:21 Drug: [place] 5 mg-325 mg 1 tabs Route: PO; mg2 21:13 Follow up: Response: No adverse reaction; Marked relief of symptoms mg2 Disposition: 10/13/18 21:11 Discharged to Home. Impression: Other acute postprocedural pain. - Condition is Stable. - Discharge Instructions: Pain Medicine Instructions. - Medication Reconciliation Form, Thank You Letter, Antibiotic Education, Prescription Opioid Use form. - Follow up: Frantz Kohler MD; When: 2 - 3 days; Reason: Re-evaluation by your physician. Signatures: Dispatcher [employer] EDMS Lesli Ramirez RN RN Joseluis Gaffney MD MD Kaleb Seaman RN RN mg2 Corrections: (The following items were deleted from the chart) 21:24 21:11 10/13/2018 21:11 Discharged to Home. Impression: Other acute postprocedural pain. mg2 Condition is Stable. Forms are Medication Reconciliation Form, Thank You Letter, Antibiotic Education, Prescription Opioid Use. Follow up: Frantz Kohler; When: 2 - 3 days; Reason: Re-evaluation by your physician.
== END 2018-10-13 21:24 | disposition home or self-care (01) ==
LOC: ER 18:50
DX: G89.18 Other acute postprocedural pain (principal); R10.11 Right upper quadrant pain; F32.9 Major depressive disorder, single episode, unspecified; F41.9 Anxiety disorder, unspecified
CPT/HCPCS: 36415; 80048; 85025; 96360; 99283; J7030

== ENCOUNTER 2021-12-18 06:23 | Day surgery (SDC) | payer BC ==
[2021-12-17 08:38] LABS: Absolute Lymphocytes (CBC) 1.5 K/uL (0.7-4.9); Hematocrit 41.7 % (39.6-49.0); Lymphocytes % 30.9 % (15.3-44.8); MPV 7.6 fL (7.6-11.3); RBC Red Blood Cell Count 4.52 M/uL (4.33-5.43)
--- NOTE | 2021-12-17 08:50 | RAD REPORT ---
EXAM DESCRIPTION: Lisa Ordaz (2 Views)12/17/2021 8:45 am CLINICAL HISTORY: Preop colonoscopy COMPARISON: None FINDINGS: The lungs appear clear of acute infiltrate. The heart is normal size Old rib fractures IMPRESSION: No acute abnormalities displayed
[2021-12-17 08:53] LABS: Potassium 4.5 mmol/L (3.5-5.1)
--- NOTE | 2021-12-17 10:03 | EKG ---
Test Date: 2021-12-17 Test Time: 07:09:50 Lighter Captain: RYAN MEASUREMENT RESULTS: Intervals: Rate: 54 NE: 124 QRSD: 94 QT: 422 QTc: 400 [place]: P: 70 NE: 124 QRS: 54 T: 59 INTERPRETIVE STATEMENTS: Sinus bradycardia Otherwise normal ECG No previous ECG available for comparison Electronically Signed On 12-17-21 10:02:24 CDT by Reuben Lock
[2021-12-18] MEDS ORDERED: Ringers Lactate 1,000 ML IV ONE (06:49)
[2021-12-18] MEDS ORDERED: GLYCOPYRROLATE 0.2 MG/ML SYR ONE (07:13)
[2021-12-18] MEDS ORDERED: LIDOCAINE 1% MPF 5 ML VIAL ONE (07:13)
[2021-12-18] MEDS ORDERED: propofoL 200 MG/20 ML VIAL IV ONE (07:13)
--- NOTE | 2021-12-18 08:01 | ENDO RPT ---
[address], [address] COLONOSCOPY PROCEDURE REPORT EXAM DATE: 12/18/2021 PATIENT NAME: Luis Liz MR #: [id number] BIRTHDATE: 1960 ATTENDING: Ugo Card M.D. STATUS: outpatient HEALTH CARE COORDINATOR: Bienvenido Hidalgo CST and Neeta Campos RN INDICATIONS: The patient is a 61 yr old Male here for a colonoscopy due to family history of colon polyps and Cologuard Positive PROCEDURE PERFORMED: Colonoscopy MEDICATIONS: Per Anesthesia. ESTIMATED BLOOD LOSS: None CONSENT: The patient understands the risks and benefits of the procedure and understands that these risks include, but are not limited to: sedation, allergic reaction, infection, perforation and/or bleeding. Alternative means of evaluation and treatment include, among others: physical exam, x-rays, and/or surgical intervention. The patient elects to proceed with this endoscopic procedure. DESCRIPTION OF PROCEDURE: During intra-op preparation period all mechanical medical equipment was checked for proper function. Hand hygiene and appropriate measures for infection prevention was taken. Procedure, possible complications, alternatives including, but not limited to possibility of bleeding, perforation, tear, infection, sepsis, need for surgery, need for blood transfusion, were explained to the patient. After the risks, benefits and alternatives of the procedure were thoroughly explained, Informed consent was verified, confirmed and timeout was successfully executed by the treatment team. The patient was placed in the left lateral position. A digital rectal exam was performed and revealed external hemorrhoids. After appropriate level of anesthesia, the scope was passed. The EC-[id number] ([id number]) endoscope was introduced through the anus and advanced to the cecum, which was identified by the ileocecal valve. The quality of the prep was good. The instrument was then slowly withdrawn as the colon was fully examined. Scope withdrawal time was 20 minutes. COLON FINDINGS: Mild diverticulosis was noted in the sigmoid colon. Moderate sized internal and external hemorrhoids were found. Retroflexed views revealed no abnormalities. The scope was then completely withdrawn from the patient and the procedure terminated. ADVERSE EVENTS: There were no complications. IMPRESSIONS: 1. Mild diverticulosis was noted in the sigmoid colon 2. Moderate sized internal and external hemorrhoids RECOMMENDATIONS: 1. follow-up: office 1 week(s) 2. fiber rich diet 3. Metamucil 4. increase dietary water 5. no seeds in diet RECALL: Return in 5 year(s) for Colonoscopy. Ugo Card M.D. eSigned: Ugo Card M.D. 12/18/2021 8:00 AM cc: Israel Roca MD CPT CODES: ICD9 CODES: PATIENT NAME: Luis Liz MR#: [id number]
[2021-12-18 08:22] VITALS: O2SAT 100
[2021-12-18 09:01] VITALS: BP 109/58; TEMP 97.5
== END 2021-12-18 09:00 | disposition home or self-care (01) ==
LOC: OR 06:23
PROVIDERS: ATTEND Surgery
PROC: 0DJD8ZZ Inspection of Lower Intestinal Tract, Via Natural or Artificial Opening Endoscopic (ICD-10-PCS; principal; 2021-12-18 07:30)
DX: R19.5 Other fecal abnormalities (principal); Z83.71 Family history of colonic polyps; K64.4 Residual hemorrhoidal skin tags; K57.30 Diverticulosis of large intestine without perforation or abscess without bleeding; K64.8 Other hemorrhoids; Z20.822 Contact with and (suspected) exposure to COVID-19
CPT/HCPCS: 93005; 85025; 80048; 36415; 71046; 45378; U0003; J2704; J7120